=== PATIENT | female | born 1970 | race Caucasian/White ===

== ENCOUNTER 2019-10-08 15:39 | Emergency (ER) | payer OTHER ==
[2019-10-08] MEDS ORDERED: hydrOXYzine 25 MG TAB ONE (16:35)
[2019-10-08] MEDS ORDERED: Dexamethasone 4 MG TAB ONE (16:35)
[2019-10-08] MEDS ORDERED: Famotidine 20 MG TAB ONE (16:36)
== END 2019-10-08 17:15 | disposition home or self-care (01) ==
LOC: MADERS 15:39
DX: L23.7 Allergic contact dermatitis due to plants, except food (principal); F39 Unspecified mood [affective] disorder
CPT/HCPCS: 99282; J8540